=== PATIENT | female | born 1965 | race Caucasian/White ===

== ENCOUNTER 2016-11-02 10:55 | Emergency (ER) | payer OTHER ==
[~2016-11-02] VITALS: Ht 160 cm; Wt 68.2 kg
[2016-11-02 11:01] VITALS: BP 185/79; TEMP 98.5
[2016-11-02] MEDS ORDERED: DOXYCYCLINE HY100 MG (11:05)
[2016-11-02 12:30] VITALS: PULSE 73
== END 2016-11-02 12:30 | disposition home or self-care (01) ==
LOC: COL.ER 10:55
DX: H43.12 Vitreous hemorrhage, left eye (principal)